=== PATIENT | male | born 1975 | race Two or more races ===

== ENCOUNTER 2024-03-27 22:45 | Emergency (ER) | payer OTHER ==
[~2024-03-27] VITALS: Ht 162.6 cm; Wt 68.0 kg
== END 2024-03-28 00:08 | disposition left against medical advice (07) ==
LOC: ER 22:45
DX: S89.81XA Other specified injuries of right lower leg, initial encounter (principal); V49.88XA Car occupant (driver) (passenger) injured in other specified transport accidents, initial encounter; Y93.89 Activity, other specified; Y92.89 Other specified places as the place of occurrence of the external cause; Y99.8 Other external cause status